=== PATIENT | female | born 1965 ===

== ENCOUNTER 2019-06-15 06:00 | Outpatient (RCR) | payer MEDICARE, SELFPAY | END 2019-07-15 00:01 | LOC: GPT 06:00 | PROVIDERS: Visit Provider Pediatrics | DX: S83.411D Sprain of medial collateral ligament of right knee, subsequent encounter (principal); X58.XXXD Exposure to other specified factors, subsequent encounter | CPT/HCPCS: 97110 ×2; 97032; 97112; 97530 ==

== ENCOUNTER 2019-07-16 06:00 | Outpatient (RCR) | payer MEDICARE, SELFPAY | END 2019-08-15 23:59 | disposition home or self-care (01) | LOC: GPT 06:00 | PROVIDERS: Referring Provider Pediatrics; Visit Provider Pediatrics | DX: S83.411D Sprain of medial collateral ligament of right knee, subsequent encounter (principal); X58.XXXD Exposure to other specified factors, subsequent encounter | CPT/HCPCS: 97032; 97110; 97112; 97530 ==

== ENCOUNTER 2019-08-16 06:00 | Outpatient (RCR) | payer MEDICARE, SELFPAY | END 2019-09-13 23:59 | disposition home or self-care (01) | LOC: GPT 06:00 | PROVIDERS: Referring Provider Pediatrics; Visit Provider Pediatrics | DX: M54.5 Low back pain (principal); M79.7 Fibromyalgia | CPT/HCPCS: 97110; 97140; G0283 ==